=== PATIENT | female | born 1985 | race Caucasian/White ===

== ENCOUNTER 2017-11-16 23:33 | Emergency (ER) | payer MEDICAID ==
[2017-11-17 00:30] VITALS: BP 136/77
[2017-11-17 01:28] LABS: Bilirubin,Urine NEG (Negative); Blood,Urine MOD (Negative); Color,Urine Yellow (Yellow); Protein,Urine <15 mg/dL mg/dL (Negative); Urobilinogen,Urine < 2.0 mg/dL (<2.0); WBC,Urine < 1.0 /HPF (0.0-6.0)
[2017-11-17 01:53] LABS: Basophils % (Auto) 0.4 % (0.0-1.8); Eosinophils # (Auto) 0.4 K/mm3 (0.0-0.4); Eosinophils % (Auto) 3.5 % (0.0-4.3); Hematocrit 37.2 % (30.3-42.9); Hemoglobin 12.4 gm/dl (10.1-14.3); Lymphocytes # (Auto) 2.8 K/mm3 (1.2-5.4); Lymphocytes % (Auto) 24.4 % (13.4-35.0); Mean Corpuscular HGB Conc 33 % (30-34); Mean Corpuscular Hemoglobin 27 pg (28-32); Mean Corpuscular Volume 82 fl (79-97); Monocytes # (Auto) 0.8 K/mm3 (0.0-0.8); Monocytes % (Auto) 7.1 % (0.0-7.3); Platelet Count 214 K/mm3 (140-440); Red Blood Count 4.56 M/mm3 (3.65-5.03); Red Cell Distribution Width 13.5 % (13.2-15.2)
== END 2017-11-17 01:30 | disposition left against medical advice (07) ==
LOC: ED 23:33
DX: N93.9 Abnormal uterine and vaginal bleeding, unspecified (principal); Z53.21 Procedure and treatment not carried out due to patient leaving prior to being seen by health care provider
CPT/HCPCS: 36415; 81001; 84702; 85025; 86850; 86900; 86901

== ENCOUNTER 2017-12-16 09:47 | Emergency (ER) | payer MEDICAID ==
[2017-12-16] MEDS ORDERED: TYLENOL PO ONE (10:51)
[2017-12-16] MEDS ORDERED: FLEXERIL PO ONE (11:02)
[2017-12-16 11:06] LABS: Bacteria,Urine 1+ /HPF (Negative); Bilirubin,Urine NEG (Negative); Blood,Urine NEG (Negative); Color,Urine Amber (Yellow); Mucus,Urine 1+ /HPF; Protein,Urine <15 mg/dL mg/dL (Negative); Urobilinogen,Urine < 2.0 mg/dL (<2.0)
[2017-12-16] MEDS ORDERED: FLEXERIL ONE (11:07)
[2017-12-16] MEDS ORDERED: TYLENOL ONE (11:07)
--- NOTE | 2017-12-16 11:53 | Emergency Department Report ---
ED Abdominal Pain HPI - General Chief Complaint: Back Pain/Injury Stated Complaint: LOWER BACK PAIN, PREG Time Seen by Provider: 12/16/17 10:47 Source: patient Mode of arrival: Ambulatory Limitations: No Limitations - History of Present Illness Initial Comments: Patient is a 32-year-old female who is 15 weeks who is presenting with low back pain as well as abdominal pressure. Patient states the pressure sensation is in the suprapubic region. Patient states that this morning while urinating she did see a small amount of of jett blood on the toilet paper. Patient states that her lower back pain is making this Vazquez and is a 10 out of 10 aching. Patient states is worse when she is moving and when she is lying flat. Patient denies any fevers chills nausea vomiting dysuria or diarrhea at this time. Patient also denies any trauma or heavy lifting. Severity scale (0 -10): 9 - Related Data Previous Rx's Medication Instructions Recorded Last Taken Type Cyclobenzaprine HCl [Flexeril 5 MG 5 mg PO TID #12 tab 12/16/17 Unknown Rx TAB] Nitrofurantoin Monohyd/M-Cryst 100 mg PO BID #14 capsule 12/16/17 Unknown Rx [Macrobid 100 mg Capsule] Allergies Allergy/AdvReac Type Severity Reaction Status Date / Time No Known Allergies Allergy Verified 12/16/17 09:52 ED Review of Systems ROS: Stated complaint: LOWER BACK PAIN, PREG Other details as noted in HPI Comment: All other systems reviewed and negative ED Past Medical Hx - Past Medical History Previous Medical History?: No - Surgical History Past Surgical History?: No - Social History Smoking Status: Never Smoker Substance Use Type: None - Medications Home Medications: Home Medications Medication Instructions Recorded Confirmed Last Taken Type Cyclobenzaprine HCl [Flexeril 5 MG 5 mg PO TID #12 tab 12/16/17 Unknown Rx TAB] Nitrofurantoin Monohyd/M-Cryst 100 mg PO BID #14 capsule 12/16/17 Unknown Rx [Macrobid 100 mg Capsule] ED Physical Exam - General Limitations: No Limitations General appearance: alert, in no apparent distress - Head Head exam: Present: atraumatic, normocephalic - Eye Eye exam: Present: normal appearance - ENT ENT exam: Present: mucous membranes moist - Neck Neck exam: Present: normal inspection - Respiratory Respiratory exam: Present: normal lung sounds bilaterally. Absent: respiratory distress, wheezes, rales, rhonchi - Cardiovascular Cardiovascular Exam: Present: regular rate, normal rhythm. Absent: systolic murmur, diastolic murmur, rubs, gallop - GI/Abdominal GI/Abdominal exam: Present: soft, normal bowel sounds. Absent: distended, tenderness, guarding, rebound - Extremities Exam Extremities exam: Present: normal inspection - Back Exam Back exam: Present: normal inspection, tenderness, paraspinal tenderness (lumbar ) - Neurological Exam Neurological exam: Present: alert, oriented X3 - Psychiatric Psychiatric exam: Present: normal affect, normal mood - Skin Skin exam: Present: warm, dry, intact, normal color. Absent: rash ED Course Vital Signs 12/16/17 12/16/17 09:52 11:14 Temperature 98.1 F Pulse Rate 105 H Respiratory 18 16 Rate Blood Pressure 142/79 O2 Sat by Pulse 97 Oximetry ED Medical Decision Making - Lab Data Lab Results 12/16/17 Range/Units 10:48 Urine Color Violet (Yellow) Urine Turbidity Clear (Clear) Urine pH 5.0 (5.0-7.0) Ur Specific Elmo 1.023 (1.003-1.030) Urine Protein <15 mg/dl (Negative) mg/dL Urine Glucose (UA) Neg (Negative) mg/dL Urine Ketones 20 (Negative) mg/dL Urine Blood Neg (Negative) Urine Nitrite Neg (Negative) Urine Bilirubin Neg (Negative) Urine Urobilinogen < 2.0 (<2.0) mg/dL Ur Leukocyte Esterase Neg (Negative) Urine WBC (Auto) 3.0 (0.0-6.0) /HPF Urine RBC (Auto) 2.0 (0.0-6.0) /HPF U Epithel Cells (Auto) 7.0 (0-13.0) /HPF Urine Bacteria (Auto) 1+ (Negative) /HPF Urine Mucus 1+ /HPF - Medical Decision Making Despite the fact that the patient's urinalysis was relatively normal patient does have signs and symptoms of urinary tract infection. The patient be treated for interstitial cystitis. Patient also was given Flexeril for muscular back discomfort. Tylenol and Flexeril patient's pain did improve. Patient will be discharged home follow with her PHOTOGRAPHIC EQUIPMENT TECHNICIAN. Bedside ultrasound performed by me which did show a viable approximately 15 week IUP. There was a vigorous heartbeat and movement Critical care attestation.: If time is entered above; I have spent that time in minutes in the direct care of this critically ill patient, excluding procedure time. ED Disposition Clinical Impression: Interstitial cystitis, Back pain Disposition: DC- TO HOME OR SELFCARE Is pt being admited?: No Does the pt Need Aspirin: No Condition: Stable Instructions: Urinary Tract Infection in Women (ED), Abdominal Pain in (ED) Referrals: GOPI ROSAS MD [Primary Care Provider] - 3-5 Days
[2017-12-16 12:40] VITALS: BP 138/70
== END 2017-12-16 12:31 | disposition home or self-care (01) ==
LOC: ED 09:47
DX: O23.12 Infections of bladder in pregnancy, second trimester (principal); N30.10 Interstitial cystitis (chronic) without hematuria; Z3A.15 15 weeks gestation of pregnancy
CPT/HCPCS: 81001; 87086; 99283

== ENCOUNTER 2018-01-20 10:39 | Outpatient (CLI) | payer MEDICAID ==
[2018-01-20] MEDS ORDERED: TYLENOL PO ONE (13:21)
--- NOTE | 2018-01-20 14:10 | Emergency Department Report ---
ED Fall HPI - General Chief Complaint: Fall Stated Complaint: FALL /PREG Time Seen by Provider: 01/20/18 13:20 Source: patient Mode of arrival: Ambulatory Limitations: No Limitations - History of Present Illness Initial Comments: 32-year-old female currently 20 weeks presents to the hospital with bilateral knee pain and abdominal pressure after fall. Patient missed a step and fell down 3 stairs. She fell forward and used her arms to brace herself. She struck both knees during the fall and states she was able o shield her abdomen for the most part. She complains of lower abdominal pain, suprapubic and lower abdominal pressure, and bilateral knee pain. Overall pain is rated 9/ 10 in intensity, constant, worse with palpation and movement. No head injury or LOC reported. Patient denies vaginal bleeding or dysuria. A care. WEAVE ROOM SUPERVISOR Dr. Gopi Mccullough - Related Data Previous Rx's Medication Instructions Recorded Last Taken Type Cyclobenzaprine HCl [Flexeril 5 MG 5 mg PO TID #12 tab 12/16/17 Unknown Rx TAB] Nitrofurantoin Monohyd/M-Cryst 100 mg PO BID #14 capsule 12/16/17 Unknown Rx [Macrobid 100 mg Capsule] Allergies Allergy/AdvReac Type Severity Reaction Status Date / Time No Known Allergies Allergy Verified 12/16/17 09:52 ED Review of Systems ROS: Stated complaint: FALL /PREG Other details as noted in HPI Comment: All other systems reviewed and negative ED Past Medical Hx - Past Medical History Previous Medical History?: No - Surgical History Past Surgical History?: No - Social History Smoking Status: Never Smoker - Medications Home Medications: Home Medications Medication Instructions Recorded Confirmed Last Taken Type Cyclobenzaprine HCl [Flexeril 5 MG 5 mg PO TID #12 tab 12/16/17 Unknown Rx TAB] Nitrofurantoin Monohyd/M-Cryst 100 mg PO BID #14 capsule 12/16/17 Unknown Rx [Macrobid 100 mg Capsule] ED Physical Exam - General Limitations: No Limitations - Other Other exam information: General: No limitations, patient is alert in no acute distress Head exam: Atraumatic, normocephalic Eyes exam: Normal appearance, ENT: Moist mucous membrane, normal oropharynx Neck exam: Normal inspection, full range of motion, no meningismus nontender Respiratory exam: Clear to auscultation bilateral, no wheezes, rales, crackles Cardiovascular: Normal rate and rhythm, normal heart sounds Abdomen: Soft, nondistended, mild suprapubic discomfort, with normal bowel sounds, no rebound, or guarding Extremity: Full range of motion normal inspection no deformity. Tenderness to right tibia plateau area. Mild generalized tenderness to the left knee without specific isolated bony tenderness. Back: Normal Inspection, full range of motion, bilateral paraspinal muscle tenderness Neurologic: Alert, oriented x3, cranial nerves intact, no motor or sensory deficit Psychiatric: normal affect, normal mood Skin: Warm, dry, intact ED Course Vital Signs 01/20/18 11:13 Temperature 98.4 F Pulse Rate 96 H Respiratory 16 Rate Blood Pressure 133/74 O2 Sat by Pulse 98 Oximetry - Reevaluation(s) Reevaluation #1: 01/20/18 14:09 I explained the level of radiation associated with a knee x-ray and that it is low risk to her fetus. So the regional radiation exposure guide presented. Patient declines any x-rays at this time and understands that cannot rule out a fracture. Patient just wants to check on her baby. Tylenol was provided for pain 01/20/18 15:51 pain is improving after tylenol - Consultations Consultation #1: 01/20/18 15:54 Case d/w Dr Gibson since Dr Mccullough is not affiliated. rec transfer to L and D for monitoring ED Medical Decision Making - Radiology Data Radiology results: report reviewed OB ULTRASOUND GREATER THAN 14 WEEKS INDICATION: Abdominal pressure after fall. COMPARISON: None similar at this institution. TECHNIQUE: Transabdominal grayscale ultrasound with Doppler interrogation. Gestation: Power Position: Breech Amniotic Fluid: WNL (<24 weeks, subjective) Placenta: Fundal; no evidence of abruption Placental Grade: Zero Heart Rate: 151 BPM Cervical length: 3.3 cm (Normal > 3 cm) NEUROANATOMY VISUALIZED: Choroid Plexus Cisterna Magnum Cerebellum Lateral Ventricle ANATOMY VISUALIZED: Stomach Kidneys Bladder Diaphragm 4 Chamber Heart Heart 3 Vessel Cord Abd. Cord Insert SPINE VISUALIZED: Longitudinal Transverse Limited spine due to position BPD: 4.9 cm = 21 w 0 d HC: 19 cm = 21 w 2 d AC: 17.5 cm = 22 w 3 d FL: 3.3 cm = 20 w 1 d HC/AC Ratio: 1.09 Cephalic Index: 79.8 Estimated Weight: 420 grams Clinical age = 20 w 5 d EDC: 06/04/2018 US Gest. Age = 21 w 2 d EDC: 05/31/2018 CONCLUSION: Single, viable intrauterine gestation with ultrasound estimated age of 21 weeks and 2 days and EDC of 05/31/2018, currently in breech lie with details, as above. Thank you for the opportunity to participate in this patient's care. - Medical Decision Making Ultrasound ultrasound does not reveal any acute abnormality or signs of abruption Patient's pain improving after Tylenol No reported vaginal bleeding Previous blood type on record a positive Case discussed with WEAVE ROOM SUPERVISOR and patient will be discharge from the ED and transferred to labor and delivery for monitoring given gestational age - Differential Diagnosis fxt, contusion, sprain, injury, placenta abruption Critical Care Time: No Critical care attestation.: If time is entered above; I have spent that time in minutes in the direct care of this critically ill patient, excluding procedure time. ED Disposition Clinical Impression: 21 weeks gestation of Fall Qualifiers: Encounter type: initial encounter Qualified Code(s): W19.XXXA - Unspecified fall, initial encounter Knee contusion Qualifiers: Encounter type: initial encounter Disposition: DC-01 TO HOME OR SELFCARE Is pt being admited?: No Does the pt Need Aspirin: No Condition: Stable Instructions: Knee Pain (ED), (ED) Additional Instructions: Take Tylenol as needed for pain. You're being discharged directly to labor and delivery for monitoring. Please note that you refused x-ray examination of the knees and therefore I am unable to rule out a fracture at this time. Follow up with your WEAVE ROOM SUPERVISOR doctor and orthopedic doctor. Referrals: MYA BRICENO MD [Staff Physician] - 3-5 Days (Orthopedic doctor) GOPI MCCULLOUGH MD [Primary Care Provider] - 3-5 Days Time of Disposition: 16:03
--- NOTE | 2018-01-20 14:47 | Ultrasound Report ---
OB ULTRASOUND GREATER THAN 14 WEEKS INDICATION: Abdominal pressure after fall. COMPARISON: None similar at this institution. TECHNIQUE: Transabdominal grayscale ultrasound with Doppler interrogation. Gestation: Power Position: Breech Amniotic Fluid: WNL (<24 weeks, subjective) Placenta: Fundal; no evidence of abruption Placental Grade: Zero Heart Rate: 151 BPM Cervical length: 3.3 cm (Normal > 3 cm) NEUROANATOMY VISUALIZED: Choroid Plexus Cisterna Magnum Cerebellum Lateral Ventricle ANATOMY VISUALIZED: Stomach Kidneys Bladder Diaphragm 4 Chamber Heart Heart 3 Vessel Cord Abd. Cord Insert SPINE VISUALIZED: Longitudinal Transverse Limited spine due to position BPD: 4.9 cm = 21 w 0 d HC: 19 cm = 21 w 2 d AC: 17.5 cm = 22 w 3 d FL: 3.3 cm = 20 w 1 d HC/AC Ratio: 1.09 Cephalic Index: 79.8 Estimated Weight: 420 grams Clinical age = 20 w 5 d EDC: 06/04/2018 US Gest. Age = 21 w 2 d EDC: 05/31/2018 CONCLUSION: Single, viable intrauterine gestation with ultrasound estimated age of 21 weeks and 2 days and EDC of 05/31/2018, currently in breech lie with details, as above. Thank you for the opportunity to participate in this patient's care.
[2018-01-20 17:22] VITALS: BP 115/58
--- NOTE | 2018-01-20 18:25 | Event Note ---
Date: 01/20/18 Patient observed, no UC, denies bleeding. FHT's and FM documented by bedside US by me witnessed by patient and her . She will follow up with her OB . Will allow home
--- NOTE | 2018-01-20 18:26 | Discharge Summary ---
Providers - Providers Attending physician: EMMA SINGLETARY Primary care physician: GOPI ROSAS Hospitalization Condition: Good Disposition: DC-01 TO HOME OR SELFCARE Core Measure Documentation - Palliative Care Palliative Care/ Comfort Measures: Not Applicable - Core Measures Any of the following diagnoses?: none Exam - Constitutional Vitals: Temp Pulse Resp BP Pulse Ox 97.6 F 82 20 115/58 98 01/20/18 17:22 01/20/18 18:18 01/20/18 17:22 01/20/18 17:26 01/20/18 18:18 General appearance: Present: no acute distress - Abdominal General gastrointestinal: Present: soft, non-tender Plan Activity: other (no sex) Weight Bearing Status: Full Weight Bearing Diet: regular Follow up with: MYA BRICENO MD [Staff Physician] - 3-5 Days (Orthopedic doctor) GOPI ROSAS MD [Primary Care Provider] - 3-5 Days
== END 2018-01-20 18:25 | disposition home or self-care (01) ==
LOC: ED 10:39 → EDSTATUS 16:28 → TRG 16:30
DX: O47.02 False labor before 37 completed weeks of gestation, second trimester (principal); Z3A.20 20 weeks gestation of pregnancy
CPT/HCPCS: 59020; 76805

== ENCOUNTER 2018-02-27 10:43 | Outpatient (CLI) | payer MEDICAID ==
[2018-02-27 11:43] VITALS: BP 106/51
[2018-02-27] MEDS ORDERED: LACTATED RINGERS 500 ML IV ONE (12:04)
--- NOTE | 2018-02-27 15:05 | Ultrasound Report ---
ULTRASOUND BIOPHYSICAL PROFILE: History: well being Technique: Transabdominal ultrasound with Doppler interrogation. 2 - breathing movements 2 - movements 2 - posture and tone 2 - Qualitative amniotic fluid volume 8 - TOTAL SCORE OF POSSIBLE 8 Heart Rate (bpm) 151
--- NOTE | 2018-02-27 15:06 | Ultrasound Report ---
ULTRASOUND OB LIMITED History: well being Technique: Transabdominal ultrasound with Doppler interrogation. Gestation: Single Position: Cephalic Amniotic Fluid: Normal CHELE = 13.5 cm Heart Rate: 151 BPM
[2018-02-27 18:23] LABS: Bilirubin,Urine NEG (Negative); Blood,Urine NEG (Negative); Color,Urine Yellow (Yellow); Mucus,Urine FEW /HPF; Protein,Urine <15 mg/dL mg/dL (Negative); Urobilinogen,Urine < 2.0 mg/dL (<2.0)
== END 2018-02-27 20:11 | disposition home or self-care (01) ==
LOC: TRG 10:43
PROVIDERS: ATTEND Obstetrics & Gynecology
DX: O47.02 False labor before 37 completed weeks of gestation, second trimester (principal); Z3A.26 26 weeks gestation of pregnancy
CPT/HCPCS: 76815; 76819; 81001